=== PATIENT | female | born 1975 | race Caucasian/White ===

== ENCOUNTER 2018-10-07 11:14 | Emergency (ER) | payer MEDICAID ==
[2018-10-07] MEDS ORDERED: LORazepam 1 MG TAB PO ONE (12:13)
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
[2018-10-07] MEDS ORDERED: CHLORDIAZEPOXIDE 25MG PREPK#6 BTL TAKEHOME ONE (12:45)
[2018-10-07] MEDS ORDERED: ONDANSETRON DISINTEGRATING 4 MG TAB PO ONE (12:45)
[2018-10-07] MEDS ORDERED: chlordiazePOXIDE 25 MG CAP PO ONE (12:45)
[2018-10-07 13:02] VITALS: BP 153/104
--- NOTE | 2018-10-07 13:27 | ASMTCAGE ---
CAGE Do you feel you ought to Answers: Yes cut down on your drinking or drug use? Do you feel guilty about Answers: Yes your drinking or drug use? Do you drink or use drugs Answers: Yes first thing in the morning (Eye Senior Engineer)? Additional Comments See CM notes. Date Signed: 10/07/2018 01:26 PM Electronically Signed By:Deena Tompkins RN
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
--- NOTE | 2018-10-07 14:43 | ASMTCMCOM ---
CM Note CM Note Notes: Call received from [employer] driver/refuse collectorHansel. Per Hansel, pt was taken to the [facility] ([facility]) at [address] [place] [address]. Upon arrival to the [facility], the pt was turned away. The [employer] driver/refuse collector (Hansel) was informed the pt was previously stabilized and should be transferred to the [facility]. The Librium was given to the [facility], per Hansel. Call placed to the [facility] ; spoke with Julius. Per Julius, the pt was being stabilized at the [facility] earlier this morning. During her stay at the [facility], the pt repeatedly requested to be transferred to the hospital for further evaluation and treatment. Per Julius, the pt was informed that if she transferred to [facility], she would not be permitted to return to the [facility]. Taxi voucher provided by the [facility], pt transferred to [facility] ED. When pt returned to the [facility] after being evaluated, she was turned away based on her prior visit. Per Julius, the Librium was purged by the [facility] upon arrival. Update provided to Dr. Lion. Spoke with Hansel at [employer]. Hansel advised to [facility] at 17:00. Instructed Hansel to have the pt return to [facility] Emergency Department should she have any new or worsening symptoms or concerns. Date Signed: 10/07/2018 02:42 PM Electronically Signed By:Deena Tompkins RN
== END 2018-10-07 13:08 | disposition home or self-care (01) ==
DX: F10.230 Alcohol dependence with withdrawal, uncomplicated (principal)

== ENCOUNTER 2018-10-08 21:12 | Emergency (ER) | payer MEDICAID ==
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
[2018-10-09 06:10] VITALS: BP 143/73
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
--- NOTE | 2018-10-09 06:40 | ASMTTCLDSP ---
TLC Discharge Disposition Disposition: Answers: Discharge If Answers: Yes DISCHARGED: Patient/family given suicide hotline info & SAMHSA brochure? Disposition Notes: Notes: Pt stated commitment or ability to keep self safe, denied thoughts of self harm or harm to others. Pt expressed a desire to f/u with WIC and detention. Pt was given local hotline information and SAMHSA brochure After an Attempt. Discharge Concerns/Recommendations: Notes: In consultation with [facility] ED physician, Patti Mack MD, Dr. Heck concurred that pt does not appear to meet 27-65 criteria requiring psychiatric hospitalization as pt does not appear to be an imminent risk of harm to self/others/gravely disabled due to a mental illness condition. Was patient given the Answers: Not applicable Inpatient Behavioral Health Prohibited Belongings List while in the ED? Date Signed: 10/09/2018 06:39 AM Electronically Signed By:Elmer Chatman
== END 2018-10-09 06:10 | disposition home or self-care (01) ==
DX: F10.120 Alcohol abuse with intoxication, uncomplicated (principal)